=== PATIENT | female | born 1995 | race African-American/Black ===

== ENCOUNTER 2017-11-26 01:17 | Emergency (ER) | payer SELFPAY, OTHER ==
[2017-11-26] MEDS: traMADol 50 MG TAB PO (04:40)
[2017-11-26] MEDS: CLINDAMYCIN 300 MG INJ IM (04:45)
== END 2017-11-26 05:09 | disposition home or self-care (01) ==
LOC: FTE 01:17
DX: M79.645 Pain in left finger(s) (principal); B95.62 Methicillin resistant Staphylococcus aureus infection as the cause of diseases classified elsewhere
CPT/HCPCS: 96372; 99284-25